=== PATIENT | female | born 1995 | race Caucasian/White ===

== ENCOUNTER 2018-05-21 13:27 | Emergency (ER) | payer OTHER ==
[~2018-05-21] VITALS: Ht 172.7 cm; Wt 62.2 kg
[2018-05-21] MEDS ORDERED: HYDROmorphone 1 MG/ML, 1ML IM ONE (14:00)
[2018-05-21] MEDS ORDERED: ONDANSETRON ODT 4 MG PO ONE (14:00)
[2018-05-21 15:23] VITALS: BP 129/83
== END 2018-05-21 16:16 | disposition home or self-care (01) ==
LOC: ED 15:50
DX: S70.02XA Contusion of left hip, initial encounter (principal); V80.010A Animal-rider injured by fall from or being thrown from horse in noncollision accident, initial encounter; Y93.52 Activity, horseback riding; Y92.89 Other specified places as the place of occurrence of the external cause; Y99.8 Other external cause status
CPT/HCPCS: 99284